=== PATIENT | female | born 1945 ===

== ENCOUNTER 2018-07-17 23:04 | Emergency (ER) | payer MEDICARE ==
[2018-07-17 23:30] VITALS: TEMP 97.7; O2SAT 96
[2018-07-17] MEDS ORDERED: Alum-Mag Hydrox-Simethicone Susp (30 mL) PO STA (23:40)
--- NOTE | 2018-07-17 23:42 | C.PDOC ---
History Of Present Illness 73 year old female presents to the ER with 2-3 hours of crampy abdominal pain, loose stools, and one episode of vomiting. Patient admits to overindulging on holiday foods. Patient reports nausea that is relieved after vomiting. Time Seen by Provider: 07/17/18 23:35 Chief Complaint (Nursing): GI Problem History Per: Patient History/Exam Limitations: no limitations Onset/Duration Of Symptoms: Hrs Current Symptoms Are (Timing): Still Present Radiation Of Pain To:: None Quality Of Discomfort: Cramping Associated Symptoms: Nausea, Vomiting, Other (Loose stools) Exacerbating Factors: None Alleviating Factors: None Recent travel outside of the [place]: No Abnormal Vaginal Bleeding: No Past Medical History Reviewed: Historical Data, Nursing Documentation, Vital Signs Vital Signs: Last Vital Signs Temp 97.7 F 07/17/18 23:22 Pulse 102 H 07/17/18 23:22 Resp 18 07/17/18 23:22 BP 162/93 H 07/17/18 23:22 Pulse Ox 96 07/17/18 23:22 - Medical History PMH: HTN, Hyperlipidemia, Hypothyroidism Denies: Chronic Kidney Disease Family History: States: Unknown Family Hx - Social History Hx Alcohol Use: No Hx Substance Use: No - Immunization History Hx Tetanus Toxoid Vaccination: No Hx Influenza Vaccination: No Hx Pneumococcal Vaccination: No Review Of Systems Constitutional: Negative for: Fever, Chills Cardiovascular: Negative for: Chest Pain, Palpitations Respiratory: Negative for: Cough, Shortness of Breath Gastrointestinal: Positive for: Nausea, Vomiting, Abdominal Pain, Other (Loose stools) Genitourinary: Negative for: Dysuria, Hematuria Neurological: Negative for: Weakness, Numbness Physical Exam - Physical Exam Appears: Non-toxic, Other (Elderly [place]an female) Skin: Normal Color, Warm, Dry Head: Atraumatic, Normacephalic Eye(s): bilateral: Normal Inspection Oral Mucosa: Moist Chest: Symmetrical, No Tenderness Cardiovascular: Rhythm Regular Respiratory: Normal Breath Sounds, No Rales, No Rhonchi, No Wheezing Gastrointestinal/Abdominal: Soft, Tenderness (Vaguely, negative chu's and mcburney's), No Guarding, No Rebound Back: No CVA Tenderness Neurological/Psych: Oriented x3, Normal Speech ED Course And Treatment O2 Sat by Pulse Oximetry: 96 (room air) Pulse Ox Interpretation: Normal Medical Decision Making Medical Decision Making: vomiting/diarrhea holiday diet indiscretions defer w/u with informed consent Disposition Doctor Will See Patient In The: Office Counseled Patient/Family Regarding: Studies Performed, Diagnosis - Disposition Referrals: [facility] [Outside] [facility] [Outside] [facility] [Outside] Disposition: HOME/ ROUTINE Disposition Time: 23:42 Condition: GOOD Additional Instructions: BLAND diet for 2 days: Bananas, white rice, apples, toast/bread Drink tea, gatorade. No milk. Pepcid 20 mg @ night to lower stomach acid Maalox 30 cc's (one tablespoon) 5x/day to sooth intestines Zofran ODT 4 mg (nausea medicine) dissolves in mouth one tab every 8 hours as needed for nausea/vomiting. Prescriptions: Ondansetron ODT [Zofran ODT] 4 mg PO Q6H PRN #6 odt PRN Reason: Nausea/Vomiting Instructions: Diarrhea in Adolescents and Adults, Nausea and Vomiting, Adult Forms: [employer] (Lao) - Clinical Impression Clinical Impression: Diarrhea, Vomiting - Scribe Statement The provider has reviewed the documentation as recorded by the Scribe Eleno Minaya All medical record entries made by the Scribe were at my direction and personally dictated by me. I have reviewed the chart and agree that the record accurately reflects my personal performance of the history, physical exam, medical decision making, and the department course for this patient. I have also personally directed, reviewed, and agree with the discharge instructions and disposition.
[2018-07-17] MEDS ORDERED: Alum-Mag Hydrox-Simethicone Susp (30 mL) ONE (23:50)
[2018-07-18 00:44] VITALS: BP 160/80; PULSE 90; RESP 16
== END 2018-07-18 00:42 | disposition home or self-care (01) ==
LOC: C.ER 23:04
DX: R11.2 Nausea with vomiting, unspecified (principal); R19.7 Diarrhea, unspecified; E78.5 Hyperlipidemia, unspecified; I10 Essential (primary) hypertension; E03.9 Hypothyroidism, unspecified